=== PATIENT | female | born 1995 | race Caucasian/White ===

== ENCOUNTER 2018-11-10 13:53 | Emergency (ER) | payer SELFPAY ==
[~2018-11-10] VITALS: Ht 165.1 cm; Wt 49.9 kg
[2018-11-10 13:59] VITALS: BP 132/102
--- NOTE | 2018-11-10 14:00 | NUR ---
PT TRIAGED, EDMD MADE AWARE OF PT STATUS.
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
--- NOTE | 2018-11-10 14:23 | NUR ---
[facility] Department called back, spoke with [place] [employer] will try to show up and make report within the hour, if discharged before then RN is to call PD and make them aware.
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
--- NOTE | 2018-11-10 15:25 | NUR ---
[place] [employer] at bedside at this time. Pt calm and relaxed.
[2018-11-10 16:35] VITALS: BP 130/89
--- NOTE | 2018-11-10 16:35 | NUR ---
Patient discharged with v/s stable. Written and verbal after care instructions given and explained. Patient verbalized understanding. Ambulatory with steady gait. All questions addressed prior to discharge. Advised to follow up with PMD. PT. TAKEN BY DENISE ALFARO " WE WILL TAKE HER TO [facility] TO GET CHECKED OUT ALSO". PT AMBULATORY WITH STEADY GAIT AND RR EVEN AND UNLABORED.
== END 2018-11-10 16:35 | disposition home or self-care (01) ==
LOC: MED 13:53
DX: T74.21XA Adult sexual abuse, confirmed, initial encounter (principal)
CPT/HCPCS: 99283